=== PATIENT | male | born 1980 | race Caucasian/White ===

== ENCOUNTER 2021-05-20 14:11 | Emergency (ER) | payer SELFPAY ==
[2021-05-20 14:12] VITALS: BP 130/92; PULSE 93; RESP 18; TEMP 36.4; O2SAT 96; BMI 29.0
--- NOTE | 2021-05-20 15:35 | EDS_ITS ---
HPI History of Present Illness Chief Complaint: Shortness of Breath Informant: patient Narrative Narrative: Patient states he started with Covid symptoms with some congestion and myalgias and slight fevers about 11 days ago. Its been waxing and waning since. He has had a couple soft bowel movements but no nausea vomiting or abdominal pain. He has never had chest pain. He gets a cough and some mild light-colored sputum but very small amount. No hemoptysis. He had a home test positive for Covid. He also has a right aid test that he just did a couple days ago. He has an O2 sat at home over the last 2 days. Its been reading 70s to 80%'s. Yet he is actually comfortable and not short of breath. Nobody else is use this pulse ox. Nothing seems to make his symptoms better and worse. He has no history of chronic lung disease. He did not get vaccinations. He has had no travel, surgery, immobilization, personal or family history of DVT or PE. His only medication is Prilosec Allergy to sulfa and penicillin Non-smoker lives with family [facility] Home Medications omeprazole magnesium [Prilosec OTC] 20 mg PO DAILY 05/20/21 [History Last Taken Unknown] Allergy/AdvReac Type Severity Reaction Status Date / Time Penicillins Allergy Hives Verified 05/20/21 14:15 Sulfa (Sulfonamide Allergy Hives Verified 05/20/21 14:15 Antibiotics) Social History Smoking Status: Former smoker ROS ROS ED Constitutional Constitutional ED: Reports chills and fever(s); Denies weight loss Eyes Eyes: Denies change in vision ENT ENT ED: Reports rhinorrhea; Denies sore throat Cardiovascular Cardiovascular: Denies chest pain or palpitations Respiratory/Chest Respiratory/Chest: Reports cough and sputum; Denies dyspnea or dyspnea on exertion Gastrointestinal Gastrointestinal: Reports diarrhea; Denies nausea or vomiting Genitourinary Genitourinary ED: Denies hematuria Musculoskeletal Musculoskeletal: Reports myalgias Integumentary Denies rash Neurologic Neurologic: Denies headache(s) Endocrine Endocrinology: Denies polyuria Allergic/Immunologic Allergic/Immunologic ED: Denies urticaria EXAM Physical Exam Const Vital Signs: 05/20/21 14:12 05/20/21 16:03 05/20/21 16:42 Temperature 97.6 F L Temperature Source Temporal Pulse Rate 93 88 Respiratory Rate 18 Respiratory Effort Short of Breath Respiratory Depth Normal Respiratory Pattern Normal Blood Pressure 130/92 H Blood Pressure Mean 104 Pulse Ox 96 93 Oxygen Delivery Method Room Air Room Air Room Air 05/20/21 16:45 05/20/21 18:04 Temperature Temperature Source Pulse Rate 89 90 Respiratory Rate 18 20 H Respiratory Effort Respiratory Depth Respiratory Pattern Normal Blood Pressure 131/88 H Blood Pressure Mean 102 Pulse Ox 94 Oxygen Delivery Method Room Air Positive well nourished and well developed Constitutional Narrative: Patient sitting quietly in bed. His breathing is easy and unlabored. He looks very comfortable. He does not look like a person who desaturates to 70 or 80% for 2 days. General Appearance ED: well developed and NAD HEENT Negative for trauma or tenderness Eyes General Eye ED: Negative for pale conjunctiva or scleral icterus Resp normal respiratory effort Resp Narrative: Patient has a very very faint distant small rhonchi bilaterally. No wheezing. Auscultation: rhonchi; Negative for rales or wheezes Cardio regular rate and regular rhythm GI normal to inspection, nondistended, normoactive bowel sounds and non-tender Palpation: soft Back/Spine no CVA tenderness Extremity normal to inspection General Extremety ED: Negative for edema or tenderness General Extremity: Negative for edema Neuro Sensorium / Orientation: alert Psych mental status grossly normal Skin no rashes or lesions noted MDM MDM MDM Narrative Medical decision making narrative: Chest x-ray has findings consistent with Covid. We initially walk the patient. The lowest we can get his saturation was 90%. I did try a DuoNeb. This seemed to help. His saturations stayed at 92% or higher. This patient is about 11 days into his illness. His saturations are still good. We have never been able to begin to match the saturations he got at home. When he is sitting still his saturations are 96%. I am thinking that his O2 sat monitor at home may not be functioning correctly. I do not think this patient needs admission at this time. I will write for albuterol. I do not think he needs steroids. He is really beyond monoclonal antibody therapy because he is at 11 days right now. We did discuss reasons to return. Also encouraged to get vaccination when his symptoms resolved. Radiography Diagnostic Testing: Radiology Impression Chest X-Ray 05/20/21 15:54 IMPRESSION: Bilateral airspace opacities consistent with Covid pneumonia. Electronically Signed: Wolfgang Tan MD at 16:42 EDT Tel , Service support , Discharge Plan Triage Chief Complaint: Shortness of Breath ED Provider: Stephon Velez Dx/Rx/DC Orders Clinical Impression: Pneumonia due to 2019-nCoV Instructions: Caring for Someone Who Has COVID-19 Prescriptions: No Action omeprazole magnesium [Prilosec OTC] 20 mg Tablet,Delayed Release (Dr/Ec) 20 mg PO DAILY RF: 0 Primary Care Provider: Care Physician,No Primary Referrals: Mirtha Durant DO [STAFF PHYSICIAN] - 3-5 Days if not improving Care Physician,No Primary [Primary Care Provider] - Disposition Disposition: Home, Self Care
--- NOTE | 2021-05-20 15:54 | RAD_ITS ---
INDICATION: cough, Covid+ EXAMINATION/TECHNIQUE: X-RAY - XR Chest 1 View COMPARISON: None. FINDINGS: Bilateral airspace opacities. The cardiomediastinal silhouette is unremarkable. No pleural effusion or pneumothorax. No acute osseous abnormalities. RAD/Chest 1 View (Portable) IMPRESSION: Bilateral airspace opacities consistent with Covid pneumonia. Electronically Signed: Wolfgang Tan MD at 16:42 EDT Tel , Service support ,
[2021-05-20 16:03] VITALS: O2SAT 95
[2021-05-20] MEDS: Ipratropium/Albuterol Sulfate 3 ML AMPUL.NEB INHALATION (16:41)
[2021-05-20 16:42] VITALS: PULSE 88; O2SAT 93
[2021-05-20 16:45] VITALS: PULSE 89; RESP 18
[2021-05-20 18:04] VITALS: BP 131/88; PULSE 90; RESP 20; O2SAT 94
== END 2021-05-20 18:26 | disposition home or self-care (01) ==
PROVIDERS: Emergency Provider Emergency Medicine
DX: U07.1 COVID-19 (principal); J12.82 Pneumonia due to coronavirus disease 2019; Z88.2 Allergy status to sulfonamides; Z88.0 Allergy status to penicillin; Z79.899 Other long term (current) drug therapy; Z87.891 Personal history of nicotine dependence
CPT/HCPCS: 71045; 94640; 99282